=== PATIENT | male | born 1945 | race Caucasian/White ===

== ENCOUNTER → 2023-09-01 09:45 | Outpatient (REF) | payer MEDICARE, SELFPAY ==
[2023-09-01 13:17] LABS: % Basophils 1.4 % (0-2); % Immature Granulocytes 0.4 % (0-0.5); % Lymphocytes 35.2 % (20.5-51.1); % Monocytes 11.3 % (1.7-9.3); % Neutrophils 45.7 % (42.2-75.2); Absolute Basophils 0.1 10^3/uL (0-0.2); Absolute Eosinophils 0.3 10^3/uL (0-0.7); Absolute Lymphocytes 1.7 10^3/uL (1.2-3.4); Absolute Monocytes 0.6 10^3/uL (0.1-0.6); Absolute Neutrophils 2.2 10^3/uL (1.4-6.5); Hematocrit 44.1 % (39.0-52.0); Mean Corpuscular Hgb 32.5 pg (27.0-31.0); Mean Corpuscular Volume 95.7 fL (80.0-94.0); Mean Platelet Volume 10.8 fL (7.4-10.4); Nucleated Red Blood Cells % 0 % (-); Platelet Count 217 10^3/uL (130-400); Red Blood Cell Count 4.61 10^6/uL (4.70-6.10); Red Cell Dist. Width 13.1 % (11.5-14.5); White Blood Cell Count 4.9 10^3/uL (4.8-10.8)
[2023-09-01 13:40] LABS: Blood Urea Nitrogen 21 mg/dl (9-20); Calcium 9.6 mg/dl (8.4-10.2); Carbon Dioxide 28 mmol/L (22-30); Chloride 105 mmol/L (98-107); Glucose 107 mg/dl (70-99); Potassium 4.5 mmol/L (3.5-5.1); Sodium 138 mmol/L (135-145); eGFR > 60.00
== END ==
LOC: HWLAB 09:45
PROVIDERS: ATTENDING PHYSICIAN Orthopaedic Surgery; FAMILY PHYSICIAN Family Medicine
DX: Z01.818 Encounter for other preprocedural examination (principal)
CPT/HCPCS: 36415; 80048; 85025